=== PATIENT | male | born 1990 | race Caucasian/White ===

== ENCOUNTER 2024-04-12 21:09 | Emergency (ER) | payer OTHER, SELFPAY ==
[2024-04-12 21:11] VITALS: BP 139/84; BMI 28.9
--- NOTE | 2024-04-12 21:29 | ED.GENMED ---
History of Present Illness
General
Chief Complaint: Back Pain
Source: patient
Exam Limitations: none
Time Seen by Provider: 04/12/24 21:10
Nursing documentation reviewed up to this point in time: agreed with
History of Present Illness
History of Present Illness:
33-year-old male presenting to the emergency department today with concerns of right-sided low back pain with radiation down the right leg. Claims this occurred when he was trying to restrain his dog earlier tonight now feels some numbness and
tingling down the right leg. Has known significant L5 and S1 nerve root irritation from herniated disks in the past. Follows up with [facility]. Does have an appointment in 2 days for follow-up. Denies any bowel or bladder dysfunction denies
any significant strength deficits.
Past History
Past History
ED Past Medical History: None
ED Past Surgical History: None
Patient has exhibited threatening behavior?: No
Social History
Living: with family
Employment: Employed
Review of Systems
Review of Systems
Allergies reviewed?: Yes
All Other Systems: ROS reviewed and negative except as documented in HPI and ROS
Phy Exam
Physical Exam
Physical Exam:
GENERAL: Alert , in no apparent distress
EYE: pupils equal and reactive
NECK: Supple, no significant adenopathy.
ENT: o/p clr, mmm.
CARDIAC: Regular rate and rhythm .
LUNGS: Clear breath sounds bilaterally, no acute respiratory distress, no wheezes/rales/rhonchi
ABDOMEN: Soft, without focal tenderness, no r/g, no cvat
NEUROLOGICAL: Alert and oriented, no focal neuro deficits
SKIN: Warm and dry, skin intact.
MUSCULOSKELETAL: No edema, well perfused.
PSYCH: Normal and appropriate interaction.
Course
Orders/Labs/Results
Orders:
Orders
04/12/24 21:29
Acetaminophen [Tylenol] 1,000 mg PO NOW STA
Dexamethasone [Decadron] 10 mg PO NOW STA
Diazepam [Valium] 5 mg PO NOW STA
Ketorolac [Toradol] 30 mg IV NOW STA
04/12/24 23:02
HYDROmorphone [Dilaudid] 0.5 mg IV NOW STA
Vital Signs
Initial and Last Documented VS:
Initial Vital Signs
Temp Pulse Resp BP Pulse Ox
97.7 F 87 16 139/84 99
04/12/24 21:11 04/12/24 21:11 04/12/24 21:11 04/12/24 21:11 04/12/24 21:11
Last Documented Vital Signs
Temp Pulse Resp BP Pulse Ox
98.7 F 75 18 133/81 100
04/12/24 23:09 04/12/24 23:09 04/12/24 23:09 04/12/24 23:09 04/12/24 23:09
MDM/Problems Addressed
MDM/Problems Addressed:
33-year-old male presenting to the emergency department today with concerns of back pain rating down the right leg feels similar previous episodes when he has back pain related to S1 and L5 disease of the back. Follows up with [facility] orthopedics
and does have an appointment in a few days. Upon arrival vital signs are normal no evidence of infection or spinal epidural abscess. Symptoms not consistent with cauda equina. Patient was given medications to help with symptoms. After assessment
patient with improved symptoms. Stable for outpatient follow-up. Return precautions given.
*Critical Care Note
Total Time (30-74mins, 75-104mins- exclusive of procedures): Not Applicable
ED Attending Note
-
Portions of this chart may have been created with voice recognition software.� Occasional wrong word or��sound alike� substitutions may have occurred due to the inherent limitations of voice recognition software.
Discharge Plan
Departure
Patient Disposition: Home (Routine Discharge)
Date of Disposition: 04/12/24
Time of Disposition: 23:58
Patient with high blood pressure during this ER visit?: No
Condition: Good
Covid-19: Not Applicable
Discharge Problem:
Low back pain
Instructions: Low Back Pain (DC)
Prescriptions:
New
prednisone 50 mg tablet
50 mg PO DAILY 4 Days Qty: 4 0RF
cyclobenzaprine 10 mg tablet
10 mg PO HS PRN (Reason: muscle spasm) Qty: 7 0RF
ibuprofen 600 mg tablet
600 mg PO Q6H PRN (Reason: Pain) Qty: 20 0RF
Referrals:
Heraclio Berry DO [Family Provider] -
Activity Restrictions/Additional Instructions:
You came to the emergency department today with concerns of back discomfort. Here you were given Valium, Dilaudid, dexamethasone as well as Toradol with improvement of symptoms. You are written for additional medications to take over the next few
days as symptoms will hopefully be improving. Please follow closely with your back doctor. Return to the emergency department for any worsening, new or concerning symptoms.
Interventions
Interventions:
*Risk Screen - Suicide Last Done: 04/12/24 21:11
*General Assessment Last Done: 04/12/24 21:11
*Neglect/Abuse Screening Last Done: 04/12/24 21:11
ED- Fall Risk Assessment Last Done: 04/12/24 21:11
*ED COVID-19 Vaccine History Last Done: 04/12/24 21:11
ED-Musculoskeletal Assessment Last Done: 04/12/24 21:18
Discharge Date and Time
Print Language: [id number]
[2024-04-12] MEDS: DECADRON 10 MG PO (21:37)
[2024-04-12] MEDS: VALIUM 5 MG PO (21:37)
[2024-04-12] MEDS: TYLENOL 1000 MG PO (21:37)
[2024-04-12] MEDS: TORADOL 30 MG IV (21:37)
[2024-04-12 23:09] VITALS: BP 133/81
[2024-04-12] MEDS: DILAUDID 0.5 MG IV (23:13)
== END 2024-04-13 00:11 | disposition home or self-care (01) ==
LOC: EMR 21:09
PROVIDERS: EMERGENCY PHYSICIAN Emergency Medicine; FAMILY PHYSICIAN Internal Medicine
DX: M54.50 Low back pain, unspecified (principal); M79.604 Pain in right leg; R20.0 Anesthesia of skin; R20.2 Paresthesia of skin; Z88.1 Allergy status to other antibiotic agents; Z88.5 Allergy status to narcotic agent; M51.27 Other intervertebral disc displacement, lumbosacral region
CPT/HCPCS: 99284; 96374; 96375